=== PATIENT | male | born 1985 | race Caucasian/White ===

== ENCOUNTER 2016-11-06 14:27 | Emergency (ER) | payer MEDICAID ==
[~2016-11-06] VITALS: Ht 182.9 cm; Wt 113.4 kg
[~2016-11-06 14:27] MED LIST: ADDERALL5 MG PO; ATIVAN GENERIC0.5 MG PO; BACTRIM DS 8001 TA1 PO; CIPRO 500MG TA500 MG PO; CITALOPRAM HYDR40 MG PO; CLINDAMYCIN300 MG PO; DARVOCET-N 1001 EACH PO; DARVOCET-N6 EACH/PAK PO; FLEXERIL10 MG PO; HYDROCODONE-APA1 TA1 PO; LODINE200 MG PO; LORTAB 5/500 501 TAB PO; LORTAB 500 MG-71 TAB PO; MEDROL 4MG. DOSE4 MG PO; NICOTINE21 MG/24 H TD; NOMEDS XX; NORCO 325 MG-51 TAB PO; OMNICEF 300 MG300 MG PO; SUBOXONE 8 MG-21 FIL SL; SUBOXONE 8 MG-21 TAB SL; TESSALON PERLE100 MG PO; TRAZODONE HCL150 MG PO; ULTRAM 50 MG TA50 MG PO; ZOFRAN4 MG PO
--- NOTE | 2016-11-06 15:10 | Urgent Treatment Center Report ---
History of Present Issue Date/Time Seen by Provider 11/06/16 1502 Visit Reason Pt arrived:Walked Presenting Problem:PT IS C/O N/V AND A FEVER Location if Accident: Onset of symptoms date/time:/ or onset unknown for:MEDICAL HX UNKNOWN Have you (or family members/close friends) recently traveled outside the [place]? N If Yes, where/when: Have you had exposure to infectious disease within the past month? TB? Other? Specify: c/o "I don't feel good and had to leave work early. I need a note. Starting to feel some better but still don't feel like eating.". Nausea and vomiting w/ feeling feverish just this morning. Vomited twice, nothing since then but hasn't ate. Tolerating gatorade. No diarrhea, abdominal pain. No known sick contacts. Primarily here because he needs a work excuse but does still feel "somewhat nauseated". 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 Source patient Exam Limitations no limitations ALLERGIES Coded Allergies: codeine (10/14/15) Home Medications Reported Medications BUPRENORPHINE HCL/NALOXONE HCL (Suboxone 8 MG-2 MG Sl Film) 1 FILM SL TID #84 History Medical History General CAD? No Angina: No UT: No Hypertension? No Hyperlipidemia? No CHF? No DVT? No PE? No COPD? No Asthma? No Anemia? No GERD? No Gastric ulcers? No GI Bleed? No Hernia? No Thyroid Problems? No Hypothyroidism? No CVA? No Seizures? No Diabetes? Yes Insulin Dependent: No Insulin Pump: No Home FSBS? No Renal Insuffiency? No UTI? No Stones? No BPH? No GB Disease: No Nephritic Syndrome? No Asplenia? No Hepatitis? No Sickle Cell Disease? No Arthritis? No Migraines? No Cataracts? No Glaucoma? No MRSA? No HIV? No TB? No Anxiety? No Depression? No Cancer? No More? Yes Additional hx: IV heroin use Immunization HX DT/Tetanus 1-4 Years Ago Flu Refused Pneumonia Refuses Surgical Hx Previous Surgery?Y PINS IN RIGHT WRIST Family History Family HX Diabetes Yes CAD No Hypertension Yes Hyperlipidemia Yes Cancer Yes TB No Social History Smoking Hx Smoker: Current Every Day Smoker Tobacco: Yes Type Cigarettes Packs/day 1 1/2 - 2 Packs Alcohol Alcohol: No Review of Systems All Other Systems Reviewed and Negative Constitutional see HPI Eyes denies drainage ENT denies: ear pain, nose discharge, nose congestion, throat pain. Respiratory denies cough Gastrointestinal see HPI Genitourinary denies: dysuria, frequency. Skin denies rash Psychiatric/Neurological denies headache Physical Exam Vital Signs Vital Signs Date Time Temp Pulse Resp B/P Pulse O2 O2 Flow FiO2 Ox Delivery Rate 11/06 1440 98.3 83 20 134/80 98 General Appearance normal appearance, no apparent distress Ear, Nose, Throat normal ENT inspection Respiratory Status No: respiratory distress, productive cough, non productive cough. Lung Sounds anterior: lungs clear. posterior: lungs clear. bilateral: lungs clear. Cardiovascular regular rate/rhythm, no peripheral edema, no murmur Gastrointestinal normal bowel sounds, non tender, soft, no organomegaly, no guarding, no rebound Neurologic alert, oriented x 3 Mental status normal mood/affect Skin normal color, warm/dry Lymphatic no adenopathy Medical Decision Making LABS/Meds/Orders Pt receiving controlled substance in ED? No Results/Orders Current Medication Orders Sig/Rayna Start time Last Medication Dose Route Stop Time Status Admin Ondansetron HCl 4 MG ONCE ONE 11/06 1515 AC 11/06 SL 11/06 1516 1511 Ondansetron HCl 0 .STK-MED ONE 11/06 1509 DC .ROUTE Departure Departure Time of Disposition 1510 Disposition DC Home or Self Care(routine) Clinical Impression Primary Impression: Viral gastroenteritis Secondary Impressions: Encounter to obtain excuse from work Condition STABLE Referrals NO REFERRAL Follow up with primary care IMMEDIATELY for new or worsening symptoms OR no noticeable improvement over the next 48 hours. Patient Instructions DI for Viral Gastroenteritis -- Adult Additional Instructions * Monitor Temp. Tylenol every 4 hours as needed no more then 5 times in 24 hours and/or ibuprofen every 6 hours as needed (as long as your primary care doctor has told you that it is ok to take both) for fever/aches/pain. ER if fever no less than 101 despite tylenol and ibuprofen * Follow up immediately for new or worsening symptoms OR no noticeable improvement over the next 48 hours. * Increase fluids. Water, gatorade, powerade, juice OR pedialyte with limited formula/dairy in children. * No food is ok as long as you or your child is drinking. Once ready to eat, start bland. bananas, rice, applesauce, toast * Contagious until no diarrhea, vomiting, fever x 24 hours without medication * Avoid anti-diarrheals unless told otherwise. Best to let the virus run its course. * work excuse for today ok. See how you feel tomorrow. Call clinic if still having symptoms since you feel somewhat better already. If you are still symptomatic, we can decide if you need seen again, if you need additional antiemetics or if you just need more time to rest. Discharge Counseling Counseled pt/family regarding diagnosis, medications/RX, home care, follow up needs at [phone]
[2016-11-06 15:16] VITALS: BP 134/80
== END 2016-11-06 15:17 | disposition home or self-care (01) ==
LOC: UTC 14:27
DX: A08.4 Viral intestinal infection, unspecified (principal); F17.210 Nicotine dependence, cigarettes, uncomplicated; E11.9 Type 2 diabetes mellitus without complications; Z79.899 Other long term (current) drug therapy

== ENCOUNTER → 2017-01-24 | Outpatient (CLI) | payer MEDICAID ==
[2017-01-24 12:31] LABS: HEMOGLOBIN 15.9 g/dL (14.1-18.0); LYMPH # 2.3 K/mm3 (0.7-4.5); LYMPH % 45.8 % (10-50)
--- NOTE | 2017-01-24 13:09 | RADIOLOGY REPORT PS360 ---
EXAM: THORACIC SPINE-3V SWIMMERS HISTORY: BACK PAIN COMPARISON: None FINDINGS: Normal alignment. No fracture or dislocation. No lytic or blastic change. There is mild multilevel degenerative disc disease with small endplate osteophytes involving the mid thoracic spine. IMPRESSION: Mild thoracic spondylosis, no acute finding
[2017-01-24 14:30] LABS: BUN 13 mg/dL (7-18)
[2017-01-24 14:39] LABS: GFR (ESTIMATED) 114 ML/MIN (>60)
== END ==
LOC: LAB 11:22
PROVIDERS: Nurse Practitioner Family
DX: L02.93 Carbuncle, unspecified (principal); M54.5 Low back pain; M54.6 Pain in thoracic spine